=== PATIENT | female | born 2000 | race Two or more races ===

== ENCOUNTER 2022-10-31 11:33 | Emergency (ER) | payer MEDICAID ==
[~2022-10-31] VITALS: Ht 162.6 cm; Wt 49.9 kg
[2022-10-31 11:51] VITALS: BP 113/61
--- NOTE | 2022-10-31 12:00 | NUR ---
PT SEEN BY FOR EVMARCE
--- NOTE | 2022-10-31 12:28 | NUR ---
PT RETURNED FROM RADIOLOGY
--- NOTE | 2022-10-31 13:20 | NUR ---
tech w/ pt for crutch/gait training.
[2022-10-31] MEDS ORDERED: IBUP-1953 PO (13:21)
--- NOTE | 2022-10-31 13:33 | NUR ---
Patient discharged to home in stable condition. Written and verbal after care instructions given. Patient verbalizes understanding of instruction. Prescription given to pt.
== END 2022-10-31 13:55 | disposition home or self-care (01) ==
LOC: ER 11:58
DX: S93.602A Unspecified sprain of left foot, initial encounter (principal); J45.909 Unspecified asthma, uncomplicated; Z79.1 Long term (current) use of non-steroidal anti-inflammatories (NSAID); W10.9XXA Fall (on) (from) unspecified stairs and steps, initial encounter; Y93.89 Activity, other specified; Y92.89 Other specified places as the place of occurrence of the external cause; Y99.8 Other external cause status
CPT/HCPCS: 73610-TC; 73630-TC